=== PATIENT | female | born 1955 | race Caucasian/White ===

== ENCOUNTER 2024-08-16 04:33 | Emergency (ER) | payer MEDICARE, BC, SELFPAY ==
[2024-08-16] VITALS (11 sets, daily range): BP systolic 162–183; BP diastolic 84–139; PULSE 73–81; RESP 11–16; TEMP 36.6; O2SAT 95–100; BMI 33.1
--- NOTE | 2024-08-16 04:52 | CT_ITS ---
PROCEDURE INFORMATION: Exam: CT Head Without Contrast Exam date and time: 08/16/2024 5:32 AM Age: 69 years old Clinical indication: Stroke-like symptoms; Dizziness/giddiness; Additional info: Acute dizziness TECHNIQUE: Imaging protocol: Computed tomography of the head without contrast. Radiation optimization: All CT scans at this facility use at least one of these dose optimization techniques: automated exposure control; mA and/or kV adjustment per patient size (includes targeted exams where dose is matched to clinical indication); or iterative reconstruction. Other technique: STROKE PROTOCOL was implemented. COMPARISON: CT HEAD/BRAIN WO CON 08/16/2024 5:32 AM FINDINGS: Brain: Diffuse cerebral atrophy and white matter microangiopathic chronic ischemia in both hemispheres. No CT evidence of acute infarct, hemorrhage, mass or mass effect. Cerebral ventricles: No ventriculomegaly. Paranasal sinuses: Visualized sinuses are unremarkable. No fluid levels. Mastoid air cells: Visualized mastoid air cells are well aerated. Bones: Unremarkable. No acute fracture. Soft tissues: Unremarkable. IMPRESSION: Senescent brain changes but no CT evidence of acute brain injury. ASSESSMENT: ASPECTS ([place] Stroke Program Early CT Score) is 10.
--- NOTE | 2024-08-16 04:52 | CT_ITS ---
PROCEDURE INFORMATION: Exam: CTA Head With Contrast, Arteriography Exam date and time: 08/16/2024 5:34 AM Age: 69 years old Clinical indication: Stroke-like symptoms; Dizziness/giddiness; Additional info: Acute dizziness TECHNIQUE: Imaging protocol: Computed tomographic angiography of the head with contrast. Exam focused on the arteries. 3D rendering (Not supervised by radiologist): MIP and/or 3D reconstructed images were created by the technologist. Radiation optimization: All CT scans at this facility use at least one of these dose optimization techniques: automated exposure control; mA and/or kV adjustment per patient size (includes targeted exams where dose is matched to clinical indication); or iterative reconstruction. Contrast material: ISOVUE; Contrast volume: 80 ml; Contrast route: INTRAVENOUS (IV); COMPARISON: CT HEAD/BRAIN WO CON 08/16/2024 5:32 AM FINDINGS: ANTERIOR CIRCULATION: Right internal carotid artery: Intracranial segment is patent with no significant stenosis. No aneurysm. Right middle cerebral artery: No occlusion or significant stenosis. No aneurysm. Right anterior cerebral artery: No occlusion or significant stenosis. No aneurysm. Left internal carotid artery: Intracranial segment is patent with no significant stenosis. No aneurysm. Left middle cerebral artery: No occlusion or significant stenosis. No aneurysm. Left anterior cerebral artery: No occlusion or significant stenosis. No aneurysm. POSTERIOR CIRCULATION: Right vertebral artery: No occlusion or significant stenosis. No aneurysm. Left vertebral artery: No occlusion or significant stenosis. No aneurysm. Basilar artery: No occlusion or significant stenosis. No aneurysm. Right posterior cerebral artery: No occlusion or significant stenosis. No aneurysm. Left posterior cerebral artery: No occlusion or significant stenosis. No aneurysm. Brain: No definite mass, mass effect, or midline shift. Cerebral ventricles: No ventriculomegaly. Bones/joints: Unremarkable. No acute fracture. Soft tissues: Unremarkable. IMPRESSION: No large vessel stenosis or occlusion.
--- NOTE | 2024-08-16 04:52 | CT_ITS ---
PROCEDURE INFORMATION: Exam: CTA Neck With Contrast Exam date and time: 08/16/2024 5:34 AM Age: 69 years old Clinical indication: Stroke-like symptoms; Dizziness/giddiness; Additional info: Acute dizziness TECHNIQUE: Imaging protocol: Computed tomographic angiography of the neck with contrast. Exam focused on the cervical segments of the vasculature. 3D rendering (Not supervised by radiologist): MIP and/or 3D reconstructed images were created by the technologist. Radiation optimization: All CT scans at this facility use at least one of these dose optimization techniques: automated exposure control; mA and/or kV adjustment per patient size (includes targeted exams where dose is matched to clinical indication); or iterative reconstruction. Contrast material: ISOVUE; Contrast volume: 80 ml; Contrast route: INTRAVENOUS (IV); COMPARISON: CT HEAD/BRAIN WO CON 08/16/2024 5:32 AM FINDINGS: Right common carotid artery: Calcified atherosclerotic plaque at the right carotid bulb but no hemodynamically significant stenosis present. No dissection or occlusion. Right internal carotid artery: No stenosis of the extracranial segment. No dissection or occlusion. Right external carotid artery: No occlusion or stenosis of the origin. Left common carotid artery: Calcified atherosclerotic plaque at the left carotid bulb but no hemodynamically significant stenosis present.. No dissection or occlusion. Left internal carotid artery: No stenosis of the extracranial segment. No dissection or occlusion. Left external carotid artery: No occlusion or stenosis of the origin. Right vertebral artery: No stenosis. No dissection or occlusion. Left vertebral artery: No stenosis. No dissection or occlusion. Soft tissues: Several small benign-appearing thyroid hypodensities measuring 6 mm or less. Bones/joints: No acute fracture. IMPRESSION: Mild stenoses at each carotid bulb but no hemodynamically significant arterial stenosis visualized in the neck. REFERENCES: NASCET CRITERIA. The degree of stenosis in the cervical segment of the internal carotid artery is based on NASCET criteria. Normal is no stenosis. Mild is less than 50% stenosis. Moderate is 50-69% stenosis. Severe is 70% to 99% stenosis. Total occlusion is no detectable patent lumen.
[2024-08-16 05:02] LABS: Microscopic, Urine URINE MICROSCOPIC (MICROSCOPIC)
[2024-08-16] MEDS: MECLIZINE 25MG TABLET 50 MG PO (05:04)
--- NOTE | 2024-08-16 05:04 | ECG_ITS ---
APPROVED REPORT Exam: Resting ECG HR:71 bpm ECG Measurements Heart Rate [address] 165 P 72 QRSd 91 QRS -2 QT 381 T 61 QTc 404 Conclusion SINUS RHYTHM WITH OCCASIONAL SUPRAVENTRICULAR PREMATURE COMPLEXES BORDERLINE ECG UNCONFIRMED REPORT Electronically signed by : VANITA MITCHELL, 08/17/2024 02:24:18
[2024-08-16 05:10] LABS: Appearance,Urine CLEAR (Clear); Bilirubin,Urine Negative (Negative); Blood, Urine Negative (Negative); Color,Urine YELLOW (Yellow); Glucose,Urine (UA) Negative (Negative); Ketones,Urine Negative (Negative); Leukocyte Esterase,Urine SMALL (Negative); Nitrate,Urine Negative (Negative); PH,Urine 6.5 (5.0-8.5); Protein,Urine Negative (Negative); Urobilinogen,Urine 0.2 EU/dl (0.2)
[2024-08-16 05:13] LABS: Basophils % 0.4 % (0.1-2.0); Eosinophils # 0.1 K/mm3 (0.0-0.4); Eosinophils % 1.1 % (0.1-12.0); Hematocrit 41.6 % (37.0-47.0); Hemoglobin 13.5 g/dL (12.2-16.2); Lymphocytes # 3.6 K/mm3 (0.7-4.5); Lymphocytes % 38.5 % (10-50); Mean Corpuscular HGB Conc 32.5 g/dL (31.8-35.4); Mean Corpuscular Volume 89.5 fl (81-99); Mean Platelet Volume 9.2 fl (7.4-10.4); Monocytes # 0.7 K/mm3 (0.1-1.0); Neutrophils # 4.8 K/mm3 (1.8-7.8); Neutrophils % 52.4 % (37.0-80.0); Platelet Count 253 K/mm3 (142-424); Red Blood Count 4.65 M/mm3 (4.20-5.40); Red Cell Distribution Width 12.3 % (11.5-17.5); White Blood Count 9.2 K/mm3 (4.8-10.8)
[2024-08-16 05:14] LABS: Albumin Level 4.8 g/dl (3.5-5.0); Chloride 104 mmol/L (98-107); Potassium 4.2 mmoL/L (3.5-5.1); Sodium 139 mmol/L (136-145)
[2024-08-16 05:17] LABS: Alanine Aminotransferase 32 U/L (12-78); Albumin/Globulin Ratio 1.4 (1.1-1.8); Alkaline Phosphatase 81 U/L (38-126); Anion Gap 11.2 mEq/L (5-15); Aspartate Amino Transferase 33 U/L (14-36); Bilirubin,Total 0.6 mg/dl (0.2-1.3); Blood Urea Nitrogen 24 mg/dl (7-17); Calcium 9.7 mg/dl (8.4-10.2); Carbon Dioxide 28 mmol/L (22.0-30.0); Creatinine Clearance Estimated 63 mL/min (50-200); Estimated Glomerular Filt Rate 49 ml/min (>60); GFR (African American) 59 ML/MIN (>60); Globulin 3.4 g/dL (1.3-3.2); Glucose 158 mg/dl (74-100); Magnesium 1.9 mg/dl (1.6-2.3); Phosphorous 3.2 mg/dl (2.5-4.5); Total Protein,Serum 8.2 g/dl (6.3-8.2)
--- NOTE | 2024-08-16 05:34 | [facility].EDGENADL ---
Discharge Plan Disposition Patient Disposition: Home, Self-Care Prescriptions Prescriptions: New meclizine 25 mg tablet 25 mg PO QID PRN (Reason: dizziness) Qty: 30 0RF Referrals Follow up/Referrals: Provider,Referral, MD [Primary Care Provider] - See instructions Activity Restrictions/Add. Instructions Additional Instructions/Restrictions: Please follow-up with your primary care provider. Please return to the emergency department if you develop any new or worsening symptoms or become concerned for your health. Please take meclizine as needed for nausea and vomiting. The initial test we did is called the [place]-Hallpike maneuver. The treatment is called the Duarte maneuver. It can be performed at home. Clinical Impressions Clinical Impression: Benign paroxysmal positional vertigo Instructions Patient Instructions: Benign Paroxysmal Positional Vertigo Print Language Print Language: [place] Discharge ED Provider: Terrance Ellis Adult HPI General Chief complaint: Dizziness Stated complaint: vomiting, dizziness, possibly dehydrated Time Seen by Provider: 08/16/24 04:40 Mode of Arrival: Ambulatory Source of Information: Patient Description of Symptoms (Recalled from ER Triage Doc. by RN): pt presents with intermittent dizziness that is worse with movement that began x1 day ago with associated nausea. History of Present Illness HPI narrative: 69-year-old female without significant past medical history presents for acute onset vertigo associated with movement that started yesterday. First noticed it when she got up to go to the bathroom about 24 hours ago. As she was walking back from the bathroom, it hit her suddenly. It was worsened by rolling [id number] in bed. She has had nausea. She had several other episodes today and has been having difficulty walking as a result. She does not have any numbness, weakness or vision changes currently, but when the dizziness happens she reports she sees the room spinning. Denies headache. Related Data Previous Rx's ?Medication ?Instructions ?Recorded meclizine 25 mg tablet 25 mg PO QID PRN dizziness #30 tabs 08/16/24 Allergies Allergy/AdvReac Type Severity Reaction Status Date / Time CODEINE AdvReac Unknown HEART Uncoded 05/17/17 15:33 [facility] Disclaimer: The information contained in this section may have been updated after the patient was seen, as this information can be updated by other users. Social History Smoking Status: Never smoker alcohol intake: never current occupational status: employed and retired Travel in the last 8 weeks: None ROS Obtained: Yes All systems reviewed & no additional complaints except as documented Physical Exam General General appearance: alert and in no apparent distress Head Head exam: atraumatic and normocephalic Eye Eye exam: Present normal appearance, PERRL and EOMI ENT ENT exam: Present normal oropharynx and normal external ear exam Neck Neck exam: Present normal inspection and full ROM Chest Chest inspection: Present normal inspection and symmetric chest wall rise; Absent tenderness Respiratory Respiratory exam: Present normal lung sounds bilaterally; Absent respiratory distress Cardiovascular Cardiovascular exam: Present regular rate and normal rhythm Abdominal Exam Abdominal exam: Present soft; Absent distention, tenderness or guarding Extremities Exam Extremities exam: Present normal inspection; Absent edema or joint swelling Back Exam Back exam: Present normal inspection; Absent tenderness Neurological Exam Neurological exam: Present alert and oriented X3; Absent motor sensory deficit Psychiatric Psychiatric exam: Present normal affect and normal mood Skin Skin exam: Present warm, dry and normal color Lymphatic Lymphatic Findings: no adenopathy Medical Decision Making Medical Records Medical records reviewed: Yes I reviewed the patient's medical records. Screening: Per USPSTF and CDC recommendations, given the prevalence of disease in our region, it is our hospital?s policy to screen for HIV and viral Hepatitis for all patients aged 18 and over and those with ongoing risk factors. Uriel Inquiry Pt receiving controlled substance: No Uriel was queried for this patient: No Vital Signs: 08/16/24 04:44 08/16/24 04:45 08/16/24 04:46 Temperature Temperature Source Pulse Rate 73 75 77 Pulse Rate [Radial] Respiratory Rate Blood Pressure 162/93 H 172/93 H Blood Pressure [Right Arm] Blood Pressure Mean [Right Arm] Blood Pressure Position Blood Pressure Position [Right Arm] 02 Sat by Pulse Oximetry 100 99 100 Oxygen Delivery Method 08/16/24 04:48 08/16/24 04:50 08/16/24 04:51 Temperature 98 F Temperature Source Oral Pulse Rate 74 75 Pulse Rate [Radial] 75 Respiratory Rate 16 Blood Pressure 162/93 H 172/93 H Blood Pressure [Right Arm] 180/139 H Blood Pressure Mean [Right Arm] 152 Blood Pressure Position Supine Sitting Blood Pressure Position [Right Arm] Sitting 02 Sat by Pulse Oximetry 98 Oxygen Delivery Method Room Air 08/16/24 04:57 08/16/24 05:00 08/16/24 05:45 Temperature Temperature Source Pulse Rate 81 78 77 Pulse Rate [Radial] Respiratory Rate 11 L Blood Pressure 183/94 H 166/84 H Blood Pressure [Right Arm] Blood Pressure Mean [Right Arm] Blood Pressure Position Standing Blood Pressure Position [Right Arm] 02 Sat by Pulse Oximetry 98 96 Oxygen Delivery Method 08/16/24 06:00 08/16/24 06:59 Temperature 98 F Temperature Source Oral Pulse Rate 76 76 Pulse Rate [Radial] Respiratory Rate 11 L 16 Blood Pressure 177/87 H 177/87 H Blood Pressure [Right Arm] Blood Pressure Mean [Right Arm] Blood Pressure Position Sitting Blood Pressure Position [Right Arm] 02 Sat by Pulse Oximetry 95 Oxygen Delivery Method Room Air Lab Data Lab results reviewed: Yes I reviewed the patient's lab results. Lab Results 08/16/24 04:57: Urine Color Yellow, Urine Appearance Clear, Urine pH 6.5, Ur Specific [place] 1.020, Urine Protein Negative, Urine Glucose (UA) Negative, Urine Ketones Negative, Urine Blood Negative, Urine Nitrate Negative, Urine Bilirubin Negative, Urine Urobilinogen 0.2, Ur Leukocyte Esterase Small, Urine WBC 10-20, Ur Squamous Epith Cells 3-5, Urine Bacteria 1+ 08/16/24 05:03: WBC 9.2, RBC 4.65, Hgb 13.5, Hct 41.6, MCV 89.5, MCH 29.0, MCHC 32.5, RDW 12.3, Plt Count 253, MPV 9.2, Neut % (Auto) 52.4, Lymph % (Auto) 38.5, [place] % (Auto) 7.0, Eos % (Auto) 1.1, Baso % (Auto) 0.4, Neut # (Auto) 4.8, Lymph # (Auto) 3.6, [place] # (Auto) 0.7, Eos # (Auto) 0.1, Baso # (Auto) 0.0, Sodium 139, Potassium 4.2, Chloride 104, Carbon Dioxide 28, Anion Gap 11.2, BUN 24 H, Creatinine 1.10 H, Estimated Creat Clear 63, Estimated GFR 49 L, Est GFR ( Amer) 59, Glucose 158 H, Calcium 9.7, Phosphorus 3.2, Magnesium 1.9, Total Bilirubin 0.6, AST 33, ALT 32, Alkaline Phosphatase 81, Troponin I < 0.01, Total Protein 8.2, Albumin 4.8, Globulin 3.4 H, Albumin/Globulin Ratio 1.4 08/16/24 05:03 08/16/24 05:03 Orders (Tests/Meds): ED MEDICATIONS Discontinued Medications Generic Name Dose Route Start Last Admin Trade Name Bobbyq PRN Reason Stop Dose Admin Iopamidol 80 ml 08/16/24 05:46 08/16/24 05:47 Iopamidol-370 (76%);100ml Bottle IV 08/16/24 05:47 80 ml ONCE ONE Administration Meclizine HCl 50 mg 08/16/24 04:52 08/16/24 05:04 Meclizine 25mg Tablet PO 08/16/24 04:53 50 mg ONCE ONE Administration Sodium Chloride 50 ml 08/16/24 05:46 08/16/24 05:47 0.9 % Sodium Chloride 50 Ml Vial IV 08/16/24 05:47 50 ml ONCE ONE Administration Sodium Chloride 10 ml 08/16/24 05:46 08/16/24 05:47 Sodium Chloride 0.9% 10ml Syr (Rad Only) IV 08/16/24 05:47 10 ml ONCE ONE Administration ORDERS Category Date Time Status CT angio head Stat Cat Scan 08/16/24 04:[address] angio neck Stat Cat Scan 08/16/24 04:[address] head/brain wo con Stat Cat Scan 08/16/24 04:52 Completed CBC w/Auto Diff [Complete Blood Count Auto Diff] Stat Lab 08/16/24 05:03 Completed CMP [Comprehensive Metabolic Panel] Stat Lab 08/16/24 05:03 Completed Magnesium Stat Lab 08/16/24 05:03 Completed Phosphorous Stat Lab 08/16/24 05:03 Completed Troponin I Q3H Lab 08/16/24 05:03 Completed UA [Urinalysis and Microscopic] Stat Lab 08/16/24 04:57 Completed Urine Culture Stat Micro 08/16/24 04:57 Received Medical Decision Narrative: 69-year-old female without significant past medical history presents for acute onset vertigo, intermittent, worse with movement. History was obtained via interactive discussion with patient, family. On arrival, patient is [afebrile, hemodynamically stable, satting appropriately, alert, oriented x4, GCS 15], moving all extremities spontaneously. Full physical exam performed and significant for no significant physical exam abnormalities. NIH 0. Differential includes but is not limited to BPPV, M?ni?re's, labyrinthitis, posterior stroke. Patient was given meclizine for symptomatic management and correction of underlying abnormalities. Patient is currently asymptomatic and NIH is 0, last known normal approximate 24 hours, therefore no indication for tPA. Overall concern for stroke is low as presentation seems more consistent with BPPV. workup initiated including CT head, CTA head and neck, blood work.. On re-evaluation, patient [remains afebrile, HD stable.] Laboratory workup independently interpreted by me and significant for 10-20 WBCs in the urine, though patient has no urinary symptoms to suggest UTI. Likely asymptomatic bacteriuria. No significant electrolyte derangement, no significant leukocytosis. Imaging independently interpreted by me and significant for no hemodynamically significant stenosis or calcification within the intracranial or extracranial vessels, no intracranial mass lesion or hemorrhage.. See radiology read for full review of final results. EKG independently interpreted by me and significant for sinus rhythm, rate of 71, no evidence of arrhythmia or ischemic changes.. The [place]-Hallpike maneuver was performed on the right with nystagmus provoked. The Duarte maneuver was performed several times with some symptomatic improvement per patient. Extensive interactive discussion was had with patient and family regarding her presentation. She is encouraged to follow-up with her PCP for further assessment. Recommend she attempt the Duarte maneuver at home as needed. Given patient history, exam and workup, patient's presentation most likely represents BPPV. Patient discharged in stable condition. Return precautions given. Procedures Risk/Benefits of Procedure(s) Were Explained: Yes Critical Care Critical Care Time Critical Care Time: Yes Attestation: On 08/16/24, the high probability of a clinically significant, sudden or life threatening deterioration of the following system(s) required my full and direct attention, intervention and personal management. The time I documented below is in addition to time spent performing reported procedures but includes the following listed in this critical care notation. Total Time Total Critical Care Time: 40
[2024-08-16 05:38] LABS: Troponin I < 0.01 ng/ml (0.00-0.034)
[2024-08-16 05:43] LABS: Bacteria,Urine 1+ /lpf
[2024-08-16] MEDS: SODIUM CHLORIDE 0.9% 10ML SYR (RAD ONLY) 10 ML IV (05:47)
[2024-08-16] MEDS: 0.9 % SODIUM CHLORIDE 50 ML VIAL IV (05:47)
[2024-08-16] MEDS: IOPAMIDOL-370 (76%);100ML BOTTLE 80 ML IV (05:47)
--- NOTE | 2024-08-19 17:45 | PC.NURSE ---
URINE CULTURE DISCUSSED WITH DR HOUSE, RX FOR MACROBID SENT TO [facility]. SPOKE WITH PT. V/U WILL [facility] RX
== END 2024-08-16 07:01 | disposition home or self-care (01) ==
PROVIDERS: Emergency Provider Emergency Medicine
DX: H81.10 Benign paroxysmal vertigo, unspecified ear (principal); R11.2 Nausea with vomiting, unspecified
CPT/HCPCS: 70450; 70496; 70498; 80053; 81001; 83735; 84100; 84484; 85025; 87086; 87088; 87186; 93005; 99291; Q9967